=== PATIENT | male | born 1980 | race African-American/Black ===

== ENCOUNTER 2022-10-01 20:32 | Emergency (ER) | payer OTHER, MEDICAID ==
[~2022-10-01] VITALS: Ht 157.5 cm; Wt 76.7 kg
[2022-10-01 21:00] VITALS: BP_SYST 106
[2022-10-01] MEDS ORDERED: DIPHTH,PERTUSS(ACELL),TET VAC 0.5 ML VIAL (Tdap) I.M. ONE (23:00)
[2022-10-01] MEDS ORDERED: CHLO473M5 PO (23:37)
[2022-10-02 00:46] VITALS: BP_SYST 136
== END 2022-10-02 00:44 | disposition home or self-care (01) ==
LOC: SED 20:32
DX: S01.511A Laceration without foreign body of lip, initial encounter (principal); S01.551A Open bite of lip, initial encounter; Z79.899 Other long term (current) drug therapy; W54.0XXA Bitten by dog, initial encounter; Y93.89 Activity, other specified; Y92.89 Other specified places as the place of occurrence of the external cause; Y99.8 Other external cause status
CPT/HCPCS: 90715; 99283